=== PATIENT | male | born 1990 | race Caucasian/White ===

== ENCOUNTER 2022-11-28 06:46 | Emergency (ER) | payer OTHER ==
[~2022-11-28] VITALS: Ht 180.3 cm; Wt 61.8 kg
[2022-11-28 07:44] VITALS: O2SAT 99
== END 2022-11-28 07:44 | disposition home or self-care (01) ==
LOC: FSED 06:59
DX: R00.2 Palpitations (principal); F41.0 Panic disorder [episodic paroxysmal anxiety]
CPT/HCPCS: 99282